=== PATIENT | male | born 1970 | race Caucasian/White ===

== ENCOUNTER 2017-03-10 11:24 | Day surgery (SDC) | payer OTHER ==
[~2017-03-10] VITALS: Ht 175.3 cm; Wt 97.5 kg
[2017-03-10] MEDS ORDERED: SEVOFLURANE 15 MIN GAS INH ONE (12:46)
[2017-03-10] MEDS ORDERED: ONDANSETRON HCL 4 MG/2 ML VIAL IVP ONE ×2 (12:46→14:00)
[2017-03-10] MEDS ORDERED: SUCCINYLCHOLINE CHLORIDE 20 MG/ML(QUELICIN) IVP ONE (12:46)
[2017-03-10] MEDS ORDERED: MEPERIDINE HCL/PF 100 MG/ML AMP IM ONE (12:46)
[2017-03-10] MEDS ORDERED: fentaNYL CITRATE/PF 100 MCG/2 ML AMP IVP ONE (12:46)
[2017-03-10] MEDS ORDERED: CEFAZOLIN 2 GM IVPB PREMIX 50 ML IV ONE (12:46)
[2017-03-10] MEDS ORDERED: MIDAZOLAM HCL 5 MG/5 ML VIAL IVP ONE (12:46)
[2017-03-10] MEDS ORDERED: DEXAMETHASONE SOD PHOSPHATE 4 MG/ML VIAL IVP ONE (12:46)
[2017-03-10] MEDS ORDERED: LR 1,000 ML IV.SOLN IV ONE (12:46)
[2017-03-10] MEDS ORDERED: KETOROLAC TROMETHAMINE 30 MG VIAL IVP ONE (12:46)
[2017-03-10] MEDS ORDERED: PROPOFOL 200MG/ 20ML VIAL (DIPRIVAN) IV ONE (12:46)
[2017-03-10] MEDS ORDERED: POLYMYXIN 500,000/BACIT.10,000 UNITS in NS IRR 1 L IR ONE (13:22)
[2017-03-10] MEDS ORDERED: NALOXONE HCL 0.4 MG/ML AMP (NARCAN) IVP ONE (14:00)
[2017-03-10] MEDS ORDERED: MIDAZOLAM HCL 5 MG/5 ML VIAL IVP PRN (14:00)
[2017-03-10] MEDS ORDERED: KETOROLAC TROMETHAMINE 30 MG VIAL IM ONE (14:00)
[2017-03-10] MEDS ORDERED: fentaNYL CITRATE/PF 100 MCG/2 ML AMP IVP PRN (14:00)
[2017-03-10] MEDS ORDERED: MEPERIDINE HCL/PF 25 MG/ML DISP.SYRIN IVP PRN (14:00)
[2017-03-10] MEDS ORDERED: HYDROmorphone 1 MG INJ. 1 MG/ML AMPUL IVP PRN (14:00)
[2017-03-10 16:11] VITALS: BP_SYST 123
== END 2017-03-10 17:00 | disposition home or self-care (01) ==
LOC: SMU 11:24 → SDS 11:24
PROVIDERS: ATTEND Orthopaedic Surgery
DX: S86.011A Strain of right Achilles tendon, initial encounter (principal); X58.XXXA Exposure to other specified factors, initial encounter; Y93.39 Activity, other involving climbing, rappelling and jumping off; Y92.39 Other specified sports and athletic area as the place of occurrence of the external cause; Y99.9 Unspecified external cause status; F17.210 Nicotine dependence, cigarettes, uncomplicated
CPT/HCPCS: 27650; J0330; J0690; J1100; J1885; J2175; J2250; J2405; J2704; J3010; J7120